=== PATIENT | female | born 1940 | race Caucasian/White ===

== ENCOUNTER → 2016-09-05 11:52 | Outpatient (CLI) | payer MEDICARE, OTHER ==
[2016-03-27 10:01] VITALS: BMI 22.3
[~2016-09-05 11:52] MED LIST: ACTOS30 MG PO; ASPIRIN EC81 M1 PO; AVAPRO300 MG PO; CARAFATE1 G PO; CENTRUM COMPLE1 EACH PO; FISH OIL 1,0001 CA1 PO; HUMALOG 30100 UNITS/ SC; HYDROCODON-ACE1 EAC7 PO; KETOROLAC TR15 MG/M1 IV; LASIX20 MG PO; LEVEMIR100 U/M1 SC; LEVEMIR100 U/M1 SQ; LUNESTA2 M1 PO; MYSOLINE 50 MG50 MG PO; Morphine Sulfate IV; NOVOLOG100 U/M1 SC; ONDANSETRON4 MG/2 M3 IV; OXYCODONE HCL5 MG PO; PERCOCET 10/3251 TA1 PO; PLAVIX75 MG PO; POTASSIUM99 M1 PO; TAMOXIFEN CITRA20 MG PO; VITAMIN B-1000 MCG/M IM; ZOCOR20 MG PO
== END | disposition home or self-care (01) ==
LOC: D.CT 11:52
DX: M25.512 Pain in left shoulder (principal); R60.9 Edema, unspecified

== ENCOUNTER → 2016-10-05 11:41 | Outpatient (CLI) | payer MEDICARE, OTHER ==
[2016-03-27 10:01] VITALS: BMI 22.3
== END | disposition home or self-care (01) ==
LOC: D.CT 11:41
DX: I10 Essential (primary) hypertension (principal); R60.0 Localized edema

== ENCOUNTER 2017-10-03 14:47 | Emergency (ER) | payer MEDICARE ==
[2016-03-27 10:01] VITALS: BMI 22.3
== END 2017-10-03 17:48 | disposition home or self-care (01) ==
LOC: D.ER 14:47
DX: S30.0XXA Contusion of lower back and pelvis, initial encounter (principal); S70.01XA Contusion of right hip, initial encounter; W01.0XXA Fall on same level from slipping, tripping and stumbling without subsequent striking against object, initial encounter; Y93.89 Activity, other specified; Y92.830 Public park as the place of occurrence of the external cause; E11.9 Type 2 diabetes mellitus without complications; Z79.4 Long term (current) use of insulin; I10 Essential (primary) hypertension

== ENCOUNTER → 2018-09-01 09:57 | Outpatient (CLI) | payer MEDICARE ==
[2016-03-27 10:01] VITALS: BMI 22.3
[2018-09-01 11:31] LABS: BASOPHILS 0.2 % (0-2); HEMATOCRIT 47.2 % (36.0-48.0); HEMOGLOBIN 15.7 g/dL (12-16); IMMATURE GRANULOCYTES 0.2 % (0-5); LYMPHOCYTES 29.6 % (15-50); MCH 28.6 pg (26.0-34.0); MCHC 33.3 g/dL (31.0-37.0); MEAN PLATELET VOLUME 9.7 fL (7.4-10.4); MONOCYTES 7.6 % (2-11); NEUTROPHILS 61.4 % (40-80); RBC 5.49 10x6/uL (4.00-5.40); RDW 13.4 % (11.5-14.5)
[2018-09-01 12:02] LABS: PLATELET COUNT 286 10x3/uL (130-400)
== END | disposition home or self-care (01) ==
LOC: D.RAD 09:57
PROVIDERS: Internal Medicine Gastroenterology
DX: Z80.0 Family history of malignant neoplasm of digestive organs (principal); K59.09 Other constipation; K57.90 Diverticulosis of intestine, part unspecified, without perforation or abscess without bleeding

== ENCOUNTER → 2020-12-01 08:33 | Outpatient (CLI) | payer MEDICARE ==
[2016-03-27 10:01] VITALS: BMI 22.3
== END | disposition home or self-care (01) ==
LOC: D.US 11-30 09:30
PROVIDERS: ATTEND Family Medicine
DX: N63.10 Unspecified lump in the right breast, unspecified quadrant (principal); N63.20 Unspecified lump in the left breast, unspecified quadrant